=== PATIENT | male | born 1990 | race Caucasian/White ===

== ENCOUNTER 2019-09-04 23:16 | Emergency (ER) | payer OTHER ==
[~2019-09-04] VITALS: Ht 182.9 cm; Wt 65.8 kg
--- NOTE | 2019-09-04 23:25 | NUR ---
bibs for c/o R shoulder pain and possible dislocation. VSS
[2019-09-04] MEDS ORDERED: ETOMIDATE 2 MG/ML VIAL IV ONE (23:30)
[2019-09-04] MEDS ORDERED: ETOMIDATE 2 MG/ML VIAL ONE (23:31)
--- NOTE | 2019-09-04 23:44 | NUR ---
R SHOULDER REDUCTION DONE AT THE BED SIDE BY DR. RHODES . PT TOLERATED THE PROCCEDURE AND THE SEDATION. WELL
--- NOTE | 2019-09-04 23:47 | NUR ---
x.ray tech at the bed side
--- NOTE | 2019-09-05 00:20 | NUR ---
pt was provided w/ right shoulder sling
--- NOTE | 2019-09-05 00:25 | NUR ---
Patient discharged to home in stable condition. Written and verbal after care instructions given. Patient verbalizes understanding of instruction. pt completely awake and alert. ambulatory with stable VS. friend will provide ride back home.
[2019-09-05 01:05] VITALS: BP 131/82
== END 2019-09-05 00:25 | disposition home or self-care (01) ==
LOC: ER 23:17
DX: S43.084A Other dislocation of right shoulder joint, initial encounter (principal); X58.XXXA Exposure to other specified factors, initial encounter; Y93.89 Activity, other specified; Y92.89 Other specified places as the place of occurrence of the external cause; Y99.8 Other external cause status
CPT/HCPCS: 23650; 73030 ×2; 99152; 99285; A6403; J3490; G0500